=== PATIENT | male | born 1935 | race Caucasian/White ===

== ENCOUNTER 2017-08-31 21:58 | Observation (INO) | payer OTHER ==
[~2017-08-31] VITALS: Ht 182.9 cm; Wt 112.0 kg
[2017-08-31 22:22] LABS: HEMOGLOBIN 14.2 G/DL (12.5-16.6); MCH 33.2 PG (29.0-34.0); MCHC 33.8 G/DL (30.0-36.0); MCV 98.1 FL (86-99); PLATELET COUNT 195 K/uL (156-360); RBC DIS.WIDTH-CV 13.8 % (11.8-14.6); RBC DIS.WIDTH-SD 49.9 % (39-53); RED BLOOD COUNT 4.28 M/uL (4.00-5.50); WHITE BLOOD COUNT 6.3 K/uL (4.1-10.2)
[2017-08-31 22:32] LABS: AMYLASE 87 IU/L (1-118); CHLORIDE 109 mEq/L (99-109); POTASSIUM 4.5 mEq/L (3.7-5.4); SODIUM 141 mEq/L (136-147)
[2017-08-31 22:34] LABS: GLUCOSE 92 mg/dL (70-99)
[2017-08-31 22:38] LABS: CREATININE 1.1 mg/dL (0.6-1.3); GFR ESTIMATE (CALCULATED) > 59 mL/min/ (58.99-99999)
[2017-08-31 22:39] LABS: UREA NITROGEN (BUN) 27 mg/dL (9-23)
[2017-08-31 22:41] LABS: LIPASE 45 U/L (1.0-51.0)
[2017-08-31 22:44] LABS: TROP-I INTERPRETATION NEGATIVE; TROPONIN-I 0.01 ng/mL (0.0-0.30)
[2017-08-31] MEDS ORDERED: DUTASTERIDE0.5 MG PO (23:08)
[2017-08-31] MEDS ORDERED: ACETAMINOPHEN-1 EAC1 PO (23:09)
[2017-08-31] MEDS ORDERED: VALSARTAN-HCTZ1 EAC4 PO (23:10)
[2017-08-31] MEDS ORDERED: METAXALONE800 MG PO (23:10)
[2017-08-31 23:11] LABS: AMPHETAMINE NEGATIVE (500 ng/mL); BARBITURATES NEGATIVE (200 ng/mL); BENZODIAZEPINES NEGATIVE (150 ng/mL); BUPRENORPHINE NEGATIVE (10 ng/mL); COCAINE NEGATIVE (150 ng/mL); METHADONE NEGATIVE (200 ng/mL); METHAMPHETAMINE NEGATIVE (500 ng/mL); OPIATES (MORPHINE) NEGATIVE (100 ng/mL); OXYCODONE NEGATIVE (100 ng/mL); PHENCYCLIDINE NEGATIVE (25 ng/mL); PROPOXYPHENE NEGATIVE (300 ng/mL); THC CANNABINOIDS NEGATIVE (50 ng/mL); TRICYCLIC ANTIDEPRESSANTS NEGATIVE (300 ng/mL)
[2017-08-31] MEDS ORDERED: VESICARE5 MG PO (23:11)
[2017-08-31] MEDS ORDERED: CELECOXIB200 MG PO (23:21)
[2017-08-31] MEDS ORDERED: SIMVASTATIN40 MG PO (23:26)
[2017-08-31] MEDS ORDERED: MELOXICAM15 MG PO (23:30)
[2017-08-31] MEDS ORDERED: MELATONIN10 M1 PO (23:33)
[2017-08-31] MEDS ORDERED: FLONASE16 G1 BOTH NARES (23:34)
[2017-09-01 01:31] VITALS: BP 132/63
[2017-09-01 03:17] LABS: HDL CHOLESTEROL 92 MG/DL (Desirable>=40); LDL CHOLESTEROL 69 mg/dL (Desirable<100); NON-HDL CHOLESTEROL 93 mg/dL (Desirable<160); TOTAL CHOLESTEROL 185 mg/dL (Desirable<200); TRIGLYCERIDES 120 MG/DL (Normal: <150)
[2017-09-01 07:02] LABS: TROP-I INTERPRETATION NEGATIVE; TROPONIN-I < 0.01 ng/mL (0.0-0.30)
[2017-09-01 07:18] LABS: HEMATOCRIT 35.7 % (38.0-50.0); MCH 31.8 PG (29.0-34.0); MCHC 31.9 G/DL (30.0-36.0); MCV 99.4 FL (86-99); PLATELET COUNT 218 K/uL (156-360); RBC DIS.WIDTH-CV 14.1 % (11.8-14.6); RBC DIS.WIDTH-SD 51.3 % (39-53); RED BLOOD COUNT 3.59 M/uL (4.00-5.50); WHITE BLOOD COUNT 4.9 K/uL (4.1-10.2)
[2017-09-01 07:46] VITALS: BP 92/53
[2017-09-01 07:47] LABS: HEMOGLOBIN 11.4 G/DL (12.5-16.6)
[2017-09-01 09:36] LABS: APPEARANCE CLEAR ((CLEAR)); BILIRUBIN NEGATIVE; BLOOD NEGATIVE; COLOR YELLOW ((YELLOW)); GLUCOSE (STRIP) NEGATIVE; KETONES NEGATIVE; LEUKOCYTES NEGATIVE; NITRITE NEGATIVE; PROTEIN (STRIP) NEGATIVE; SPECIFIC GRAVITY 1.015 (1.000-1.030); UCUL ADDED? NO; UROBILINOGEN 0.2 MG/DL (0.2-1.0)
[2017-09-01 09:37] LABS: HEMOGLOBIN A1c (GLYCOHEMOGLOB) 5.5 % (Below 5.7)
[2017-09-01 11:21] LABS: FOLIC ACID (FOLATE) > 22.0 NG/ML (5.0-22.0)
[2017-09-01 11:51] VITALS: BP 144/69
[2017-09-01 13:18] LABS: TROP-I INTERPRETATION NEGATIVE; TROPONIN-I < 0.01 ng/mL (0.0-0.30)
[2017-09-01] MEDS ORDERED: VALSARTAN80 MG PO (14:27)
[2017-09-01 14:35] VITALS: BP 146/69
[2017-09-01 14:36] VITALS: BP 148/70; BP 151/73
[2017-09-01 15:27] VITALS: BP 123/68
== END 2017-09-01 18:32 | disposition home or self-care (01) ==
LOC: EME 21:58 → EDOF 23:17 → 5SOUTH 23:17 → EDOF 23:17 → ENRESERV 23:19 → 5SOUTH 09-01 01:13 → ENPENDDIS 09-01 16:02 → 5SOUTH 09-01 18:32
PROVIDERS: Hospitalist; Physician Assistant
DX: G45.9 Transient cerebral ischemic attack, unspecified (principal); S00.93XA Contusion of unspecified part of head, initial encounter; E86.0 Dehydration; W18.30XA Fall on same level, unspecified, initial encounter; E78.5 Hyperlipidemia, unspecified; I10 Essential (primary) hypertension; I95.1 Orthostatic hypotension
CPT/HCPCS: 70450; 70551; 71045; 80048; 80061; 81003; 82150; 82607; 82746; 83036; 83690; 84443; 84484; 85027; 85610; 85730; 93005; 93306; 93880; 99281; 99285; G0378; J0696; J1644; J7030